=== PATIENT | female | born 1975 | race Caucasian/White ===

== ENCOUNTER 2018-03-24 11:03 | Emergency (ER) | payer OTHER ==
[~2018-03-24] VITALS: Ht 167.6 cm; Wt 105.8 kg
[2018-03-24] MEDS ORDERED: methylPREDNISolone SOD SUCC 125 MG/2 ML ONE (11:35)
[2018-03-24] MEDS ORDERED: FAMOTIDINE 20 MG/2 ML ONE (11:35)
[2018-03-24] MEDS ORDERED: DIPHENHYDRAMINE 50 MG/ML, 1ML ONE (11:35)
[2018-03-24] MEDS ORDERED: SODIUM CHLORIDE 0.9% 1,000ML IVBOLUS ONE (12:00)
[2018-03-24] MEDS ORDERED: FAMOTIDINE 20 MG/2 ML IVPush ONE (12:00)
[2018-03-24] MEDS ORDERED: methylPREDNISolone SOD SUCC 125 MG/2 ML IVPush ONE (12:00)
[2018-03-24] MEDS ORDERED: DIPHENHYDRAMINE 50 MG/ML, 1ML IVPush ONE (12:00)
[2018-03-24] MEDS ORDERED: SODIUM CHLORIDE FLUSH 10ML SYR IVF ONE (12:00)
[2018-03-24] MEDS ORDERED: EPINEPHRINE 1 MG/ML, 1ML IM ONE (12:00)
[2018-03-24] MEDS ORDERED: EPINEPHRINE 1 MG/ML, 1ML ONE (12:01)
[2018-03-24 13:53] VITALS: BP 106/60
== END 2018-03-24 14:01 | disposition home or self-care (01) ==
LOC: ED 13:55
DX: T78.49XA Other allergy, initial encounter (principal); L50.8 Other urticaria; R42 Dizziness and giddiness; X58.XXXA Exposure to other specified factors, initial encounter
CPT/HCPCS: 93005; 96361; 96372; 96374; 96375; 99284; J0171; J1200; J2930; J3490; J7030